=== PATIENT | female | born 1950 | race Caucasian/White ===

== ENCOUNTER 2023-12-03 23:46 | Emergency (ER) | payer OTHER, SELFPAY ==
[2023-12-04] VITALS: BP 182/82
[2023-12-04 00:21] VITALS: BMI 28.3
[2023-12-04 00:27] VITALS: BP 168/61
[2023-12-04 00:49] LABS: ALT (SGPT) 20 U/L (0-35); AST (SGOT) 26 U/L (14-36); Albumin 3.9 g/dl (3.5-5.0); Alkaline Phosphatase 82 U/L (38-126); Blood Urea Nitrogen 22 mg/dl (7-17); Calcium 9.4 mg/dl (8.4-10.2); Carbon Dioxide 27 mmol/L (22-30); Chloride 101 mmol/L (98-107); Estimated Creatinine Clearance 74 ml/min; Glucose 107 mg/dl (70-99); Potassium 3.9 mmol/L (3.5-5.1); Sodium 135 mmol/L (135-145); Total Bilirubin 0.3 mg/dl (0.2-1.3); eGFR > 60.00
[2023-12-04 00:51] LABS: INR 0.91
[2023-12-04 00:52] LABS: APTT 27.5 Sec (23.4-35.0)
[2023-12-04 00:56] LABS: % Eosinophils 8.4 % (0-6); % Immature Granulocytes 0.9 % (0-0.5); % Lymphocytes 33.4 % (20.5-51.1); % Monocytes 8.1 % (1.7-9.3); % Neutrophils 48.2 % (42.2-75.2); Absolute Basophils 0.1 10^3/uL (0-0.2); Absolute Eosinophils 0.6 10^3/uL (0-0.7); Absolute Immature Granulocytes 0.1 10^3/uL (0-0.05); Absolute Lymphocytes 2.3 10^3/uL (1.2-3.4); Absolute Monocytes 0.6 10^3/uL (0.1-0.6); Absolute Neutrophils 3.3 10^3/uL (1.4-6.5); Hematocrit 35.9 % (37.0-47.0); Hemoglobin 12.4 g/dL (12.0-16.0); Mean Corp Hgb Conc. 34.5 g/dL (33.0-37.0); Mean Corpuscular Hgb 32.7 pg (27.0-31.0); Mean Corpuscular Volume 94.7 fL (81.0-99.0); Nucleated Red Blood Cells % 0 %; Platelet Count 232 10^3/uL (130-400); Red Blood Cell Count 3.79 10^6/uL (4.20-5.40); Red Cell Dist. Width 12.3 % (11.5-14.5); White Blood Cell Count 6.8 10^3/uL (4.8-10.8)
[2023-12-04 01:00] VITALS: BP 150/59
[2023-12-04 01:03] LABS: NT-proBNP 145 pg/ml; Troponin I < 0.012 ng/ml
[2023-12-04 01:09] LABS: Erythrocyte Sed Rate 13 mm/hour (0-20)
[2023-12-04] MEDS: NSS 1000 IV (01:10)
[2023-12-04 01:22] LABS: TSH 2.06 uIU/ml (0.47-4.68)
--- NOTE | 2023-12-04 01:42 | ED.GENMED ---
History of Present Illness
General
Chief Complaint: Dizziness
Source: patient and family
Exam Limitations: none
Time Seen by Provider: 12/04/23 00:52
Nursing documentation reviewed up to this point in time: agreed with
Travel History
Have you had any contact with someone who has COVID-19?: No
Do you have any symptoms of coronavirus? Fever > 100 degrees, chills, cough, shortness of breath, sore throat, loss of taste or smell, muscle aches, or headache?: No
History of Present Illness
History of Present Illness:
Pleasant 72-year-old female presents with mildly blurry vision and feels like the room is spinning around when lying down. She did take aspirin and states that it did not help her symptoms. She feels that her symptoms are worse when lying down.
Denies chest pain or shortness of breath. Patient states that it is been waxing and waning since 8 PM. Denies any previous issues. Patient does have a past medical history significant for anxiety. She is concerned because other members of her
family have had TIAs.
Vital signs are stable. Patient not hypoxic
Nursing note reviewed. I agree with nursing documentation up to this point in time.
Home Meds and allergies reviewed.
NUMBER AND COMPLEXITY OF PROBLEMS ADDRESSED AT THE ENCOUNTER
� Chronic conditions affecting care: Anxiety
� Acute Exacerbation and/or Progression of Chronic Illness:
� Differential Diagnosis includes: TIA, anxiety, vertigo, BPV, dehydration
AMOUNT AND/OR COMPLEXITY OF DATA TO BE REVIEWED AND ANALYZED
I performed an independent evaluation of the following and my interpretation is:
EKG:
CT:CT head
IMPRESSION:
No acute intracranial findings
No hemorrhage or mass-effect. No evidence for an acute large vessel territory ischemic infarct.
Cleary-white matter differentiation preserved
Mild global cerebral volume loss and chronic small vessel ischemic changes in periventricular white matter
Probable previous lacunar infarct right caudate head, coronal image 16
Report faxed directly to ER at 125am ET
X-rays:
Ultrasound:
Laboratory Studies:
Other:
Review of other/old records:
Clinical information was obtained by an independent historian:
Prescriptions/Medications Considered but not given:
Further testing considered but not performed:
RISK OF COMPLICATIONS AND/OR MORBIDITY OR MORTALITY OF PATIENT MANAGEMENT
Social determinants of health affecting care: Good Social Support
Discussion with other providers:
Escalation of care including admission/observation vs risk of discharge considered:
CRITICAL CARE NOTE:
Total Time (exclusive of procedures):
Update:
Past History
Past History
ED Past Medical History: None
ED Past Surgical History: None
Social History
Tobacco: Non-smoker
Alcohol: Occasional
Drug: None
Personal:
Living: with family
Phy Exam
General Physical Exam
General Presentation: well appearing and no apparent distress
General Skin: warm and dry
General Habitus: normal
General Mental: alert
General Hydration: appears well hydrated
ENT Exam
ENT Exam: EOMI, pharynx normal, neck supple and normocephalic
Eye Exam
Eye Exam: PERRL, cornea clear and conjunctiva normal
Cardiovascular Exam
Cardiovascular Exam: regular rate/rhythm, no edema, no murmur and normal peripheral pulses
Pulmonary Exam
Pulmonary Exam: lungs clear, no respiratory distress, no rales, no crackles, no rhonchi, no stridor, no wheezing and no cough
Gastrointestinal Exam
Gastrointestinal Exam: normal bowel sounds, non tender, soft, no organomegaly, no pulsatile mass and non distended
Neurological Exam
Neurological Exam: alert, oriented x3, no motor deficits and speech normal
Musculoskeletal Exam
Musculoskeletal Exam: full ROM and no edema
Skin Exam
Skin Exam: normal color, warm/dry, no rash and no petechia
Psychiatric Exam
Psychiatric Exam: normal mood/affect
Course
Orders/Labs/Results
Orders:
Orders
12/04/23 00:22
CT Head W/o Iv Contrast Urgent
Comment:
Reason For Exam: dizziness
12/04/23 00:25
Complete Blood Count/With Diff Urgent
Comprehensive Metabolic Panel Urgent
NT-proBNP Urgent
PTT Urgent
Prothrombin Time Urgent
Sed Rate [Erythrocyte Sed Rate] Urgent
TSH Urgent
Troponin I Urgent
12/04/23 00:53
0.9% Sodium Chloride 1000 ml [Nss] 1,000 ml IV BOLUS
12/04/23 01:51
Electrocardiogram (*1) Urgent
Reason for Study: Vertigo / Dizzy
EKG- Treatment ONCE
Abnormal Lab Results
12/04/23
00:25
RBC 3.79 L 10^6/uL
(4.20-5.40)
Hct 35.9 L %
(37.0-47.0)
MCH 32.7 H pg
(27.0-31.0)
Abs Immat Gran (auto) 0.1 H 10^3/uL
(0-0.05)
Immature Gran % 0.9 H %
(0-0.5)
Eosinophils % 8.4 H %
(0-6)
BUN 22 H mg/dl
(7-17)
Glucose 107 H mg/dl
(70-99)
Total Protein 6.0 L g/dl
(6.3-8.2)
12/04/23 00:25
12/04/23 00:25
Vital Signs
Initial and Last Documented VS:
Initial Vital Signs
Temp Pulse Resp BP Pulse Ox
97.8 F 60 22 182/82 99
12/04/23 00:00 12/04/23 00:00 12/04/23 00:00 12/04/23 00:00 12/04/23 00:00
Last Documented Vital Signs
Temp Pulse Resp BP Pulse Ox
97.8 F 67 14 161/64 98
12/04/23 00:00 12/04/23 02:46 12/04/23 02:46 12/04/23 02:46 12/04/23 02:46
*Critical Care Note
Total Time (30-74mins, 75-104mins- exclusive of procedures): Not Applicable
Update Note
Update Note:
CT head
IMPRESSION:
No acute intracranial findings
No hemorrhage or mass-effect. No evidence for an acute large vessel territory ischemic infarct.
Cleary-white matter differentiation preserved
Mild global cerebral volume loss and chronic small vessel ischemic changes in periventricular white matter
Probable previous lacunar infarct right caudate head, coronal image 16
Report faxed directly to ER at 125am ET
12/04/2023 0347 AM: Patient resting comfortably, in no acute distress at this time. Fluids seem to have helped her. She has no symptoms when lying flat. Patient wishes to be discharged home. She does request a prescription for meclizine. I feel
that this is reasonable. She will follow-up with her family doctor.
ED Attending Note
-
Portions of this chart may have been created with voice recognition software.� Occasional wrong word or��sound alike� substitutions may have occurred due to the inherent limitations of voice recognition software.
Discharge Plan
Departure
Patient Disposition: Home (Routine Discharge)
Date of Disposition: 12/04/23
Time of Disposition: 03:47
Patient with high blood pressure during this ER visit?: Yes
Condition: Good
Discharge Problem:
Benign paroxysmal positional vertigo
Instructions: Vertigo (a Type of Dizziness) (DC), BLOOD PRESSURE
Prescriptions:
New
meclizine 25 mg tablet
25 mg PO DAILY PRN (Reason: dizziness) Qty: 7 0RF
No Action
No Meds [No Current Medications]
0
Referrals:
Daniel Santana MD [Family Provider] -
Activity Restrictions/Additional Instructions:
It was a pleasure meeting you and taking part in your care. We hope for your continued healing and wellness.
Please read discharge instructions in their entirety. However, they are for general education and may not describe your exact diagnosis at discharge. Information on your ER visit and medical conditions were discussed with you along with appropriate
follow up information...
If indicated, please take your medications as instructed and indicated on discharge paperwork.
Please schedule a follow up appointment as directed. Call to schedule an appointment
Please return to the emergency department with ANY change in, persisting, or worsening of symptoms. If any of your symptoms do not improve, or persist, or become more severe within 6-12 hours, please return to the emergency department for further
care.
Please return to the emergency department if you develop a headache, neck pain/stiffness, fever greater than 100.4F, chest pain, shortness of breath, persistent nausea, vomiting, slurred speech, difficulty walking, numbness/tingling, weakness, signs
of infection or any other symptoms that are worrisome to you.
If you have any questions or concerns please do not hesitate to call the Hospital at or E-mail me directly at [email or web address]
Interventions
Interventions:
*Risk Screen - Suicide Last Done: 12/04/23 00:00
*General Assessment Last Done: 12/04/23 00:21
*Neglect/Abuse Screening Last Done: 12/04/23 00:00
ED- Fall Risk Assessment Last Done: 12/04/23 01:22
*ED COVID-19 Vaccine History Last Done: 12/04/23 00:21
ED- Neurological Assessment Last Done: 12/04/23 01:22
ED- Cardiac Assessment Last Done: 12/04/23 01:22
[2023-12-04 02:46] VITALS: BP 161/64
--- NOTE | 2023-12-04 02:53 | EDRN ---
Patient ambulatory to the restroom and back with zero difficulties, call castañeda in reach.
[2023-12-04 03:00] VITALS: BP 140/64
== END 2023-12-04 03:56 | disposition home or self-care (01) ==
LOC: EMR 23:46
PROVIDERS: EMERGENCY PHYSICIAN Student in an Organized Health Care Education/Training Program; FAMILY PHYSICIAN Internal Medicine Geriatric Medicine
DX: H81.10 Benign paroxysmal vertigo, unspecified ear (principal); F41.9 Anxiety disorder, unspecified; R03.0 Elevated blood-pressure reading, without diagnosis of hypertension
CPT/HCPCS: 99285; 96360; 70450; 80053; 83880; 84443; 84484; 85025; 85610; 85652; 85730; 93005

== ENCOUNTER 2023-12-15 06:32 | Emergency (ER) | payer OTHER, SELFPAY ==
[2023-12-15 06:35] VITALS: BP 179/86
--- NOTE | 2023-12-15 06:40 | ED.GENMED ---
History of Present Illness
General
Chief Complaint: Dizziness
Time Seen by Provider: 12/15/23 06:39
Travel History
Have you had any contact with someone who has COVID-19?: No
Do you have any symptoms of coronavirus? Fever > 100 degrees, chills, cough, shortness of breath, sore throat, loss of taste or smell, muscle aches, or headache?: No
History of Present Illness
History of Present Illness:
HPI: Earlier today, the patient had a sensation of feeling wetness to the bilateral lower extremities however when she talks to her skin they were dry. She appeared very anxious. She states that she had 4 glasses of wine up until about 5 PM
yesterday. Her confirms that she does not drink on a daily basis. She only drank alcohol to celebrate her birthday recently. She was also concerned of possibly having a stroke however she has no stroke symptoms. She also perseverates
over the fact that her blood pressure was high here and will be seeing Dr. Boone at 1:20 PM today.
EXAM:
GENERAL: Well appearing in no distress, she is hypertensive
HEENT: Moist oral mucosa
CARDIOVASCULAR: 1 out of 6 systolic ejection murmur at the upper sternal borders, normal heart rate, regular rhythm, No chest wall tenderness
PULMONARY: No respiratory distress, breath sounds are clear and equal
ABDOMEN: Soft with no peritoneal signs, no tenderness
NEUROLOGIC: Excellent strength all extremities, no coordination deficits, NIHSS equals 0
PSYCHIATRIC: Appropriate mental status, normal insight and judgement, however she appeared markedly anxious upon arrival on my initial evaluation with tremor which rapidly resolved just after talking to her
EXTREMITIES: Nontender, no edema, moves all extremities equally
SKIN: No rash, no lesions
TIME OF INITIAL ENCOUNTER: 7 AM
NUMBER AND COMPLEXITY OF PROBLEMS ADDRESSED AT THE ENCOUNTER
� Chronic conditions affecting care: IBS, shingles, patient denies history of anxiety, BPPV
� Acute Exacerbation and/or Progression of Chronic Illness: This is an acute problem
� Differential Diagnosis includes: Hypertensive urgency, anxiety, alcohol withdrawal, thyroid disease
AMOUNT AND/OR COMPLEXITY OF DATA TO BE REVIEWED AND ANALYZED
� I performed an independent evaluation of and my interpretation is:
EKG:
CT:
X-rays:
Laboratory Studies: Minimal hyponatremia noted, otherwise labs including thyroid testing is unremarkable.
Other:
� Review of other/old records: The patient was seen here with vertiginous type symptoms 11 days ago. At that time head CT unremarkable, chemistries including troponin and CBC unremarkable.
� Clinical information was obtained by an independent historian: I spoke to the at bedside
� Prescriptions/Medications Considered but not given:
� Further testing considered but not performed:
RISK OF COMPLICATIONS AND/OR MORBIDITY OR MORTALITY OF PATIENT MANAGEMENT
� Social determinants of health affecting care: Lives at home
� Discussion with other providers:
� Escalation of care including admission/observation vs risk of discharge considered: Offered to consider giving benzos as she appeared markedly anxious upon arrival with tremor however she did rapidly spontaneously improved.
Initial blood pressure 179/86. She currently does not take any medications for anxiety or blood pressure and prefers to hold off on medications at this time and wants to see cardiology later today. On reassessment at 8:50 AM, the patient's blood
pressure spontaneously improved. Alcohol level is undetected. She is very well-appearing on reassessment
Past History
Past History
ED Past Medical History: None
ED Past Surgical History: None
Social History
Tobacco: Non-smoker
Alcohol: Occasional
Drug: None
Personal:
Living: with family
Phy Exam
Physical Exam
Physical Exam:
See HPI
Course
Orders/Labs/Results
Orders:
Orders
12/15/23 07:49
Alcohol Urgent
Basic Metabolic Panel Urgent
Complete Blood Count/With Diff Urgent
Magnesium Urgent
TSH Reflex To Free T4 Urgent
Abnormal Lab Results
12/15/23
07:49
RBC 4.05 L 10^6/uL
(4.20-5.40)
MCH 32.3 H pg
(27.0-31.0)
Abs Immat Gran (auto) 0.1 H 10^3/uL
(0-0.05)
Absolute Neuts (auto) 6.9 H 10^3/uL
(1.4-6.5)
Immature Gran % 0.6 H %
(0-0.5)
Neutrophils % 78.7 H %
(42.2-75.2)
Lymphocytes % 13.2 L %
(20.5-51.1)
Sodium 131 L mmol/L
(135-145)
BUN 18 H mg/dl
(7-17)
Creatinine 0.5 L mg/dL
(0.6-1.0)
Glucose 101 H mg/dl
(70-99)
12/15/23 07:49
12/15/23 07:49
Vital Signs
Initial and Last Documented VS:
Initial Vital Signs
Temp Pulse Resp BP Pulse Ox
98.1 F 84 19 179/86 98
12/15/23 06:35 12/15/23 06:35 12/15/23 06:35 12/15/23 06:35 12/15/23 06:35
Last Documented Vital Signs
Temp Pulse Resp BP Pulse Ox
98.1 F 74 14 141/70 94
12/15/23 06:35 12/15/23 08:15 12/15/23 08:15 12/15/23 08:00 12/15/23 08:15
*Critical Care Note
Total Time (30-74mins, 75-104mins- exclusive of procedures): Not Applicable
ED Attending Note
-
Portions of this chart may have been created with voice recognition software.� Occasional wrong word or��sound alike� substitutions may have occurred due to the inherent limitations of voice recognition software.
Discharge Plan
Departure
Patient Disposition: Home (Routine Discharge)
Date of Disposition: 12/15/23
Time of Disposition: 08:56
Patient with high blood pressure during this ER visit?: No
Discharge Problem:
Anxiety
Instructions: Anxiety, Adult (DC), BLOOD PRESSURE
Prescriptions:
No Action
No Meds [No Current Medications]
0
meclizine 25 mg tablet
25 mg PO DAILY PRN (Reason: dizziness) Qty: 7 0RF
Referrals:
Daniel Santana MD [Family Provider] -
Activity Restrictions/Additional Instructions:
Your initial systolic blood pressure was 179 and then without intervention it went down to 141. Basic lab work as well as your magnesium level and thyroid levels were all unremarkable. Return here if worse. 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
today.
Interventions
Interventions:
*Risk Screen - Suicide Last Done: 12/15/23 06:35
*General Assessment Last Done: 12/15/23 06:35
*Neglect/Abuse Screening Last Done: 12/15/23 06:35
*ED COVID-19 Vaccine History Last Done: 12/15/23 06:35
[2023-12-15 07:57] VITALS: BP 145/77
[2023-12-15 08:00] VITALS: BP 141/70
[2023-12-15 08:02] LABS: % Basophils 0.7 % (0-2); % Eosinophils 1.7 % (0-6); % Immature Granulocytes 0.6 % (0-0.5); % Lymphocytes 13.2 % (20.5-51.1); % Monocytes 5.1 % (1.7-9.3); % Neutrophils 78.7 % (42.2-75.2); Absolute Basophils 0.1 10^3/uL (0-0.2); Absolute Eosinophils 0.2 10^3/uL (0-0.7); Absolute Immature Granulocytes 0.1 10^3/uL (0-0.05); Absolute Lymphocytes 1.2 10^3/uL (1.2-3.4); Absolute Monocytes 0.4 10^3/uL (0.1-0.6); Absolute Neutrophils 6.9 10^3/uL (1.4-6.5); Hemoglobin 13.1 g/dL (12.0-16.0); Mean Corp Hgb Conc. 35.4 g/dL (33.0-37.0); Mean Corpuscular Hgb 32.3 pg (27.0-31.0); Mean Corpuscular Volume 91.4 fL (81.0-99.0); Mean Platelet Volume 9.7 fL (7.4-10.4); Nucleated Red Blood Cells % 0 %; Platelet Count 243 10^3/uL (130-400); Red Blood Cell Count 4.05 10^6/uL (4.20-5.40); White Blood Cell Count 8.7 10^3/uL (4.8-10.8)
[2023-12-15 08:18] LABS: Blood Urea Nitrogen 18 mg/dl (7-17); Calcium 9.1 mg/dl (8.4-10.2); Carbon Dioxide 28 mmol/L (22-30); Chloride 99 mmol/L (98-107); Glucose 101 mg/dl (70-99); Magnesium 1.6 mg/dl (1.6-2.3); Potassium 4.1 mmol/L (3.5-5.1); Sodium 131 mmol/L (135-145); eGFR > 60.00
[2023-12-15 08:19] LABS: Alcohol None Detected
[2023-12-15 08:45] LABS: TSH Reflex To Free T4 1.15 uIU/ml (0.47-4.68)
[2023-12-15 09:00] VITALS: BP 156/82
--- NOTE | 2023-12-15 09:18 | PHANOTE ---
Completed med reconciliation with patient. She stated that she was recently prescribed 2 new medications, has picked them up from the pharmacy but has not taken any doses-but cannot recall the names of the drugs. Contacted [id number]:
lisinopril 5mg daily and simvastatin 10mg HS [Rxed on 12/12/23; picked up by pt on 12/13/23].
== END 2023-12-15 09:55 | disposition home or self-care (01) ==
LOC: EMR 06:32
PROVIDERS: EMERGENCY PHYSICIAN Emergency Medicine; FAMILY PHYSICIAN Internal Medicine Geriatric Medicine
DX: F41.9 Anxiety disorder, unspecified (principal); K58.9 Irritable bowel syndrome, unspecified; H81.10 Benign paroxysmal vertigo, unspecified ear
CPT/HCPCS: 99282; 80048; 82077; 83735; 84443; 85025

== ENCOUNTER → 2024-02-12 | Outpatient (REF) | payer OTHER, SELFPAY | LOC: DHSLP | PROVIDERS: ATTENDING PHYSICIAN Internal Medicine; FAMILY PHYSICIAN Internal Medicine Geriatric Medicine | DX: G47.33 Obstructive sleep apnea (adult) (pediatric) (principal) | CPT/HCPCS: 95800 ==

== ENCOUNTER → 2024-02-14 06:41 | Outpatient (REF) | payer OTHER, SELFPAY | LOC: RAD 06:41 | PROVIDERS: ATTENDING PHYSICIAN Nurse Practitioner Family | DX: R53.83 Other fatigue (principal) | CPT/HCPCS: 93880 ==

== ENCOUNTER → 2024-05-03 07:47 | Outpatient (REF) | payer OTHER, SELFPAY | LOC: RST 07:47 | PROVIDERS: ATTENDING PHYSICIAN Internal Medicine; FAMILY PHYSICIAN Internal Medicine Geriatric Medicine | DX: R13.12 Dysphagia, oropharyngeal phase (principal); R13.10 Dysphagia, unspecified | CPT/HCPCS: 74230; 92611 ==

== ENCOUNTER → 2024-05-09 08:15 | Outpatient (REF) | payer OTHER, SELFPAY | LOC: HWRAD 08:15 | PROVIDERS: ATTENDING PHYSICIAN Internal Medicine Geriatric Medicine | DX: Z00.00 Encounter for general adult medical examination without abnormal findings (principal); E78.2 Mixed hyperlipidemia; I10 Essential (primary) hypertension; R01.1 Cardiac murmur, unspecified; R00.2 Palpitations; R55 Syncope and collapse; M17.0 Bilateral primary osteoarthritis of knee; G47.33 Obstructive sleep apnea (adult) (pediatric); Z13.31 Encounter for screening for depression; R05.3 Chronic cough; J18.9 Pneumonia, unspecified organism | CPT/HCPCS: 71250 ==

== ENCOUNTER → 2024-05-31 07:12 | Outpatient (REF) | payer OTHER, SELFPAY | LOC: WDC 07:12 | PROVIDERS: ATTENDING PHYSICIAN Internal Medicine Geriatric Medicine | DX: Z12.31 Encounter for screening mammogram for malignant neoplasm of breast (principal) | CPT/HCPCS: 77063; 77067 ==

== ENCOUNTER → 2024-06-18 07:55 | Outpatient (REF) | payer OTHER, SELFPAY | LOC: HWRAD 07:55 | PROVIDERS: ATTENDING PHYSICIAN Internal Medicine Geriatric Medicine | DX: J18.9 Pneumonia, unspecified organism (principal) | CPT/HCPCS: 71250 ==

== ENCOUNTER → 2025-02-11 12:32 | Outpatient (REF) | payer OTHER, SELFPAY | LOC: RCS 12:32 | PROVIDERS: ATTENDING PHYSICIAN Internal Medicine Cardiovascular Disease; FAMILY PHYSICIAN Internal Medicine Geriatric Medicine | DX: I10 Essential (primary) hypertension (principal); R07.89 Other chest pain; R94.39 Abnormal result of other cardiovascular function study | CPT/HCPCS: 93017; 93350 ==

== ENCOUNTER → 2025-02-19 08:14 | Outpatient (REF) | payer OTHER, SELFPAY | LOC: RCS 08:14 | PROVIDERS: ATTENDING PHYSICIAN Internal Medicine Cardiovascular Disease; FAMILY PHYSICIAN Internal Medicine Geriatric Medicine | DX: R07.89 Other chest pain (principal); I10 Essential (primary) hypertension; R00.2 Palpitations | CPT/HCPCS: 93306 ==

== ENCOUNTER → 2025-07-07 07:28 | Outpatient (REF) | payer OTHER, SELFPAY | LOC: WDC 07:28 | PROVIDERS: ATTENDING PHYSICIAN Family Medicine | DX: Z12.31 Encounter for screening mammogram for malignant neoplasm of breast (principal) | CPT/HCPCS: 77063; 77067 ==